=== PATIENT | female | born 1995 | race Two or more races ===

== ENCOUNTER 2016-12-29 03:30 | Emergency (ER) | payer BC ==
--- NOTE | ~2016-12-29 | ER ---
PATIENT'S NAME: ALLIE BEDOYA [facility] AGE: 21 Y [address] ROOM: [place] [address] LOCATION: [facility] ADMIT DATE: 12/29/2016 ER/Outpatient Report DISCHARGE DATE: 12/29/2016 FAMILY PHYSICIAN: PHYSICIAN, NO ATTENDING PHYSICIAN: Naveed Alvarez CHIEF COMPLAINT: Lost contact lens. HISTORY OF PRESENT ILLNESS: The patient woke up after falling asleep. She tried to remove her contacts and feels like her left contact slid up. She could not locate it nor could family and she came in. PAST MEDICAL HISTORY: Noncontributory. MEDICATIONS: None. ALLERGIES: NONE. SOCIAL HISTORY: She denies any alcohol or tobacco use. REVIEW OF SYSTEMS: Performed and negative except as noted in the HPI. PHYSICAL EXAMINATION: VITAL SIGNS: Blood pressure 127/77, pulse 75, SpO2 is 98% on room air. GENERAL: Age-appropriate female, upright, in no acute distress or pain. HEENT: Normocephalic, atraumatic. The left eye is slightly injected of the sclerae. There is no mattering. The left contact lens was found hidden in the most superior recesses. It was easily removed with no friction. No other obvious abnormalities. The lens was cleaned and replaced with return to normal vision. The patient had no further foreign body sensation. CHEST: Even and unlabored respirations. SKIN: Warm, dry, and intact. EXTREMITIES: Grossly normal. LABORATORY DATA AND X-RAYS: None. IMPRESSION: [facility]GE[facility] 21 Y [address] ROOM: [place] [address] LOCATION: [facility] ADMIT DATE: 12/29/2016 ER/Outpatient Report DISCHARGE DATE: 12/29/2016 FAMILY PHYSICIAN: PHYSICIAN, NO ATTENDING PHYSICIAN: Naveed Alvarez Dislocated left contact lens. EMERGENCY DEPARTMENT COURSE: The patient was seen and evaluated. The lens was identified relocated with improvement in vision. No evidence of corneal abrasion. The patient was discharged in good condition. MD ELSI TRAVIS/sherin /[id number] d: 12/29/16621 t: 01/02/17 1001, OUTPATIENT REPORT
== END 2016-12-29 03:45 | disposition disaster alternative care site (69) ==
LOC: GMED 03:30
DX: H27.10 Unspecified dislocation of lens (principal)